=== PATIENT | male | born 2000 ===

== ENCOUNTER 2021-11-08 10:34 | Emergency (ER) | payer OTHER ==
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
[2021-11-08] MEDS ORDERED: KETOROLAC 30 MG/1 ML INJ IM ONE (11:39)
[2021-11-08] MEDS ORDERED: CYCLOBENZAPRINE 10 MG TAB PO ONE (11:39)
[2021-11-08] MEDS ORDERED: ACETAMINOPHEN W/CODEINE 300-30 MG TAB PO ONE (11:39)
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
[2021-11-08 12:54] LABS: Basophils % (Auto) 0.4 % (0.0-1.8); Eosinophils # (Auto) 0.1 K/mm3 (0.0-0.4); Eosinophils % (Auto) 1.6 % (0.0-4.3); Hematocrit 48.1 % (35.5-45.6); Hemoglobin 15.8 gm/dl (11.8-15.2); Lymphocytes # (Auto) 0.9 K/mm3 (1.2-5.4); Lymphocytes % (Auto) 12.4 % (13.4-35.0); Mean Corpuscular HGB Conc 33 % (32-34); Mean Corpuscular Volume 96 fl (84-94); Monocytes # (Auto) 0.5 K/mm3 (0.0-0.8); Monocytes % (Auto) 7.1 % (0.0-7.3); Platelet Count 199 K/mm3 (140-440); Red Blood Count 5.02 M/mm3 (3.65-5.03); Red Cell Distribution Width 15.3 % (13.2-15.2)
[2021-11-08 13:03] LABS: INR 0.88 (0.87-1.13); Partial Thromboplastin Time 26.9 Sec. (24.2-36.6)
[2021-11-08 13:10] LABS: Alanine Aminotransferase 455 units/L (7-56); Albumin 4.9 g/dL (3.9-5); BUN/Creatinine Ratio 9; Blood Urea Nitrogen 9 mg/dL (9-20); Calcium 9.9 mg/dL (8.4-10.2); Hemolysis Index 14
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
[2021-11-08] MEDS ORDERED: MORPHINE 4 MG/1 ML INJ IV ONE (16:07)
[2021-11-08] MEDS ORDERED: ONDANSETRON 4 MG/2 ML INJ IV ONE (16:07)
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
[2021-11-08] MEDS ORDERED: TETANUS,DIPH,PERTUSS(ACELL) VACCINE 0.5 ML SYRINGE IM ONE (16:39)
[2021-11-08 18:58] VITALS: BP 138/76
== END 2021-11-08 18:56 | disposition short-term general hospital (02) ==
LOC: ED 10:34
DX: S22.41XA Multiple fractures of ribs, right side, initial encounter for closed fracture (principal); S36.119A Unspecified injury of liver, initial encounter; S27.0XXA Traumatic pneumothorax, initial encounter; V89.2XXA Person injured in unspecified motor-vehicle accident, traffic, initial encounter; Z88.2 Allergy status to sulfonamides; Y93.89 Activity, other specified; Y92.89 Other specified places as the place of occurrence of the external cause; Y99.8 Other external cause status
CPT/HCPCS: 36415; 70450; 71111; 71260; 72125; 74177; 80053; 85025; 85610; 85730; 90471; 90715; 96372; 96374; 96375; 99285; J1885; J2270; J2405; Q9967